=== PATIENT | female | born 1955 | race African-American/Black ===

== ENCOUNTER 2025-03-01 13:28 | Inpatient (IN) | payer BC ==
[~2025-03-01] VITALS: Ht 165.1 cm; Wt 74.0 kg
[2025-03-01 13:43] VITALS: O2SAT 98
[2025-03-01 15:10] LABS: BASOPHILS % 0.8 % (0.0-2.0); EOSINOPHILS % 0.2 % (0.0-5.0); HEMATOCRIT. 38.7 % (36.0-48.0); HEMOGLOBIN. 12.9 g/dL (12.0-16.0); LYMPHOCYTES % 19.4 % (20.0-50.0); MEAN PLATELET VOLUME 8.7 fl (7.4-10.4); MONOCYTES % 9.6 % (2.0-8.0); NEUTROPHILS % 70.0 % (40.0-76.0); PLATELET 225 x1000/uL (130-400); RED BLOOD CELL COUNT 4.83 mill/uL (4.2-5.4); RED CELL DISTRIBUTION WIDTH 14.9 % (11.6-14.6)
[2025-03-01 15:20] LABS: CREATININE 0.5 mg/dL (0.6-1.0); UREA NITROGEN BLOOD 9 mg/dL (9-23)
[2025-03-01 15:23] LABS: TROPONIN I HIGH SENSITIVITY 9 ng/L (3.0-34)
[2025-03-01 15:31] LABS: INR 1.0
[2025-03-01] MEDS: ASPIRIN 325MG EC TABLET PO NR (15:35)
[2025-03-01] MEDS: NITROGLYCERIN 0.4MG TABLET SL SL PRN (15:35)
[2025-03-01] MEDS: LABETALOL 5MG/ML 4ML INJ IV NR (15:35)
[2025-03-01] MEDS ORDERED: ONDANSETRON HCL 4MG/2ML INJ IV PRN (16:30)
[2025-03-01] MEDS ORDERED: MAGNESIUM/ALUMINUM HYDROXIDE/SIMETHICONE 30ML UDC PO PRN (16:30)
[2025-03-01 16:35] LABS: PHOSPHORUS 2.8 mg/dL (2.5-4.9)
[2025-03-01] MEDS: POTASSIUM CHLORIDE 20MEQ/PACKET PO SCH (16:40)
[2025-03-01 17:20] VITALS: BP 143/84; PULSE 66; RESP 14; TEMP 36.8; TEMP 36.8072; O2SAT 97
[2025-03-01 20:00] VITALS: BP 144/87; PULSE 65; RESP 13; TEMP 36.8; O2SAT 97
[2025-03-01] MEDS: MAGNESIUM 2 G PREMIX 50 ML IV SCH (21:57)
[2025-03-01 23:03] LABS: HEPATITIS C AB NON REACTIVE (Neg) (Negative)
[2025-03-02] VITALS: BP 157/83; PULSE 60; RESP 16; TEMP 36.7; O2SAT 95
[2025-03-02 04:00] VITALS: BP 153/83; PULSE 64; RESP 14; TEMP 36.8; O2SAT 98
[2025-03-02 08:00] VITALS: BP 151/96; PULSE 68; RESP 17; TEMP 36.6; O2SAT 24; O2SAT 94
[2025-03-02] MEDS: ASPIRIN 81MG EC TABLET PO SCH (08:24)
[2025-03-02 09:01] LABS: BASOPHILS % 0.7 % (0.0-2.0); EOSINOPHILS % 0.4 % (0.0-5.0); HEMATOCRIT. 37.1 % (36.0-48.0); HEMOGLOBIN. 12.3 g/dL (12.0-16.0); LYMPHOCYTES % 39.1 % (20.0-50.0); MEAN PLATELET VOLUME 9.0 fl (7.4-10.4); MONOCYTES % 8.8 % (2.0-8.0); NEUTROPHILS % 51.0 % (40.0-76.0); PLATELET 213 x1000/uL (130-400); RED BLOOD CELL COUNT 4.61 mill/uL (4.2-5.4); RED CELL DISTRIBUTION WIDTH 14.8 % (11.6-14.6)
[2025-03-02 09:13] LABS: CREATININE 0.4 mg/dL (0.6-1.0)
[2025-03-02 09:15] LABS: UREA NITROGEN BLOOD < 5 mg/dL (9-23)
[2025-03-02 12:00] VITALS: BP 169/91; PULSE 67; RESP 11; TEMP 36.6; O2SAT 95
[2025-03-02] MEDS: CLONIDINE 0.1MG TABLET PO PRN (12:21)
[2025-03-02 16:00] VITALS: BP 149/90; PULSE 67; RESP 17; TEMP 36.5; O2SAT 95
[2025-03-02 20:02] VITALS: BP 114/76; PULSE 71; RESP 17; TEMP 36.7; O2SAT 97
[2025-03-02] MEDS: ATORVASTATIN CALCIUM 40MG TABLET PO SCH (21:04)
[2025-03-03] VITALS: BP 147/83; PULSE 65; RESP 12; TEMP 36.8; O2SAT 95
[2025-03-03 04:00] VITALS: BP 137/95; PULSE 66; RESP 16; TEMP 36.2; O2SAT 95
[2025-03-03 06:41] LABS: TROPONIN I HIGH SENSITIVITY < 4 ng/L (3.0-34)
[2025-03-03 06:45] LABS: CREATININE 0.5 mg/dL (0.6-1.0)
[2025-03-03 06:46] LABS: LDL CHOLESTEROL 116 mg/dL (5-100); TRIGLYCERIDE 44 mg/dL (0-150); UREA NITROGEN BLOOD 6 mg/dL (9-23)
[2025-03-03 06:54] LABS: BASOPHILS % 0.8 % (0.0-2.0); EOSINOPHILS % 1.0 % (0.0-5.0); HEMATOCRIT. 36.1 % (36.0-48.0); HEMOGLOBIN. 12.0 g/dL (12.0-16.0); LYMPHOCYTES % 31.7 % (20.0-50.0); MEAN PLATELET VOLUME 8.9 fl (7.4-10.4); MONOCYTES % 8.1 % (2.0-8.0); NEUTROPHILS % 58.4 % (40.0-76.0); PLATELET 217 x1000/uL (130-400); RED BLOOD CELL COUNT 4.51 mill/uL (4.2-5.4); RED CELL DISTRIBUTION WIDTH 15.1 % (11.6-14.6)
[2025-03-03 08:00] VITALS: BP 149/87; PULSE 63; RESP 14; TEMP 36.3; O2SAT 100
[2025-03-03 12:00] VITALS: BP 119/75; PULSE 63; RESP 18; TEMP 36.9; O2SAT 98
[2025-03-03 12:44] VITALS: BP 119/75; PULSE 63; RESP 18; TEMP 98.4
== END 2025-03-03 16:00 | disposition home or self-care (01) | DRG 313 ==
LOC: ER 13:28 → 3WST 16:25 → EDBEDREQ 16:27 → EDBEDREQTM 16:27
PROVIDERS: ADMIT Internal Medicine Nephrology; ATTEND Internal Medicine Nephrology
DX: R07.89 Other chest pain (principal); I25.10 Atherosclerotic heart disease of native coronary artery without angina pectoris; I50.20 Unspecified systolic (congestive) heart failure; I42.9 Cardiomyopathy, unspecified; I11.0 Hypertensive heart disease with heart failure; K21.9 Gastro-esophageal reflux disease without esophagitis; E87.6 Hypokalemia; R00.8 Other abnormalities of heart beat; F41.9 Anxiety disorder, unspecified
CPT/HCPCS: 36415; 71045; 80048; 80061; 83735; 83880; 84100; 84443; 84484; 85025; 86705; 87340; 93005; 93306; 99285; A4606; J3475; J3490